=== PATIENT | female | born 1985 | race Caucasian/White ===

== ENCOUNTER 2024-03-19 11:14 | Emergency (ER) | payer OTHER, SELFPAY ==
[2024-03-19 11:28] VITALS: BP 108/79
--- NOTE | 2024-03-19 11:47 | ED.GENMED ---
History of Present Illness
<Cheyanne Gallegos PA-C - Last Filed: 03/19/24 13:02>
General
Chief Complaint: Anxiety
Source: patient
Exam Limitations: none
Time Seen by Provider: 03/19/24 11:34
Nursing documentation reviewed up to this point in time: agreed with
History of Present Illness
History of Present Illness:
38-year-old female past medical history of anxiety presents emergency department today with concerns of a panic attack. Patient reports that she has had panic attacks for many years and usually she will get them around once a month, but they have
slowed in frequency since she switched jobs recently. Patient reports that they usually happen at nighttime. Patient reports that they have never gotten to the point where she required emergency treatment. Patient reports that last night, she
started to feel anxious when she is trying to fall asleep and started to feel short of breath, bilateral upper extremity paresthesias, as well as tightness and locked hands. She also had nausea and vomiting associated with this. Patient states
that the symptoms are typical of her panic attacks with a never been this severe before. Patient states that she went to bed and woke up with the same symptoms and because of the severity, called EMS. En route to the emergency department, patient
was given droperidol. Patient states that at this point, all her symptoms have resolved. Patient currently denies chest pain or shortness of breath. Patient states that she just feels fatigued but otherwise all her symptoms have resolved.
Patient does not take any psychiatric medication, patient has never seen a psychiatrist before but she did use to do therapy.
Review of Systems
<Cheyanne Gallegos PA-C - Last Filed: 03/19/24 13:02>
Review of Systems
All Other Systems: ROS reviewed and negative except as documented in HPI and ROS
Phy Exam
<Cheynane Gallegos PA-C - Last Filed: 03/19/24 13:02>
Physical Exam
Physical Exam:
General: Patient is well appearing and in no acute distress; non-toxic
Skin: Warm and dry, no rashes or lesions
Head: Normocephalic, atraumatic
Eyes: Sclera non-icteric. EOMs intact. PERRLA.
Cardiac: Regular rate and rhythm, no murmurs.
Pulm: Normal respiratory effort
Neuro: CN II-XII intact, no focal neurologic deficits.
Psychiatric: Appropriate mood and affect. Good insight and judgment. No suicidal or homicidal ideations. No visual or auditory hallucinations.
Course
<Cheyanne Gallegos PA-C - Last Filed: 03/19/24 13:02>
Orders/Labs/Results
Orders:
Orders
03/19/24 12:10
Complete Blood Count/With Diff Urgent
Comprehensive Metabolic Panel Urgent
Abnormal Lab Results
03/19/24
12:10
WBC 11.2 H 10^3/uL
(4.8-10.8)
RBC 4.07 L 10^6/uL
(4.20-5.40)
Hct 35.3 L %
(37.0-47.0)
MPV 10.9 H fL
(7.4-10.4)
Absolute Neuts (auto) 9.6 H 10^3/uL
(1.4-6.5)
Absolute Lymphs (auto) 1.1 L 10^3/uL
(1.2-3.4)
Neutrophils % 85.8 H %
(42.2-75.2)
Lymphocytes % 9.6 L %
(20.5-51.1)
Glucose 102 H mg/dl
(70-99)
03/19/24 12:10
03/19/24 12:10
Vital Signs
Initial and Last Documented VS:
Initial Vital Signs
Temp Pulse Resp BP Pulse Ox
97.5 F 78 16 108/79 98
03/19/24 11:28 03/19/24 11:28 03/19/24 11:28 03/19/24 11:28 03/19/24 11:28
Last Documented Vital Signs
Temp Pulse Resp BP Pulse Ox
97.5 F 78 16 108/79 98
03/19/24 11:28 03/19/24 11:28 03/19/24 11:28 03/19/24 11:28 03/19/24 11:28
<Lucia Zamudio MD - Last Filed: 03/19/24 12:24>
Orders/Labs/Results
Orders:
Orders
03/19/24 12:10
Complete Blood Count/With Diff Urgent
Comprehensive Metabolic Panel Urgent
Abnormal Lab Results
03/19/24
12:10
WBC 11.2 H 10^3/uL
(4.8-10.8)
RBC 4.07 L 10^6/uL
(4.20-5.40)
Hct 35.3 L %
(37.0-47.0)
MPV 10.9 H fL
(7.4-10.4)
Absolute Neuts (auto) 9.6 H 10^3/uL
(1.4-6.5)
Absolute Lymphs (auto) 1.1 L 10^3/uL
(1.2-3.4)
Neutrophils % 85.8 H %
(42.2-75.2)
Lymphocytes % 9.6 L %
(20.5-51.1)
Glucose 102 H mg/dl
(70-99)
03/19/24 12:10
03/19/24 12:10
Vital Signs
Initial and Last Documented VS:
Initial Vital Signs
Temp Pulse Resp BP Pulse Ox
97.5 F 78 16 108/79 98
03/19/24 11:28 03/19/24 11:28 03/19/24 11:28 03/19/24 11:28 03/19/24 11:28
Last Documented Vital Signs
Temp Pulse Resp BP Pulse Ox
97.5 F 78 16 108/79 98
03/19/24 11:28 03/19/24 11:28 03/19/24 11:28 03/19/24 11:28 03/19/24 11:28
<Cheyanne Gallegos PA-C - Last Filed: 03/19/24 13:02>
MDM/Problems Addressed
Differential Diagnosis Includes:
Differentials include anxiety attack, panic disorder, generalized anxiety disorder, major depressive disorder with anxious features
MDM/Problems Addressed:
38-year-old female presents emergency department today following a panic attack. She does have a history of panic attacks and states that this feels like them however she has never gotten them to be this severe before. Patient called EMS and was
given droperidol and route. Patient states that this completely relieves her symptoms. She now feels fatigued but otherwise she is not anxious, she is no chest pain or shortness of breath. On exam she is well-appearing. She has no suicidal or
homicidal ideations. CBC and CMP unremarkable. Did offer crisis consult to offer resources, however patient declines this at this time, patient states that she would rather follow-up as now patient with her own health network. No medication was
given here in the emergency department. On reassessment, patient still feels well and did not have a return of her panic symptoms. Patient stable for discharge.
Chronic conditions affecting care:
panic attacks
<Cheyanne Gallegos PA-C - Last Filed: 03/19/24 13:02>
*Pulse Oximetry
Patient hypoxic: no
*Critical Care Note
Total Time (30-74mins, 75-104mins- exclusive of procedures): Not Applicable
Data Reviewed
Review of Other/Old Records Reveals: Records (No prior ER visit documentation to review) and Discharge Summary (No prior discharge summaries to review)
Source: patient (No prior lab work, imaging studies, or EKGs to review )
Prescriptions/Medications Considered But Not Given:
n/a
Further Testing Considered But Not Given:
n/a
<Cheyanne Gallegos PA-C - Last Filed: 03/19/24 13:02>
Patient Management
Escalation/DeEscalation of care consider admission/obs:
Admit not indicated, patient stable for discharge.
ED Attending Note
<Cheyanne Gallegos PA-C - Last Filed: 03/19/24 13:02>
-
Portions of this chart may have been created with voice recognition software.� Occasional wrong word or��sound alike� substitutions may have occurred due to the inherent limitations of voice recognition software.
<Lucia Zamudio MD - Last Filed: 03/19/24 12:24>
ED Attending Note
Patient seen and examined by attending physician: Yes
I performed the substantive portion of visit, reviewed & personally made and approve the management plan that is documented in note by myself or ARIANNE.: Yes
ED Attending Note:
Patient arrives extremely anxious and slightly tachypneic, however, after some time, patient calmer. She will alert and oriented x 3. She is in no acute respiratory distress.
Discharge Plan
Departure
Patient Disposition: Home (Routine Discharge)
Date of Disposition: 03/19/24
Time of Disposition: 12:51
Patient with high blood pressure during this ER visit?: No
Condition: Good
Discharge Problem:
Anxiety attack
Instructions: Anxiety, Adult (DC), Panic Disorder (DC)
Referrals:
UNKNOWN - PT DOES,NOT KNOW [Family Provider] -
Activity Restrictions/Additional Instructions:
Please return to the emergency department should you experience hallucinations, suicidal or homicidal ideations, chest pain, shortness of breath, palpitations, or any signs or symptoms concerning to you.
Please follow-up with your primary to establish care with a therapist or psychiatrist.
Interventions
Interventions:
*Risk Screen - Suicide Last Done: 03/19/24 11:28
*General Assessment Last Done: 03/19/24 11:28
*Neglect/Abuse Screening Last Done: 03/19/24 11:28
ED- Fall Risk Assessment Last Done: 03/19/24 11:35
*ED COVID-19 Vaccine History Last Done: 03/19/24 11:35
ED-Psychological Assessment Last Done: 03/19/24 11:35
Discharge Date and Time
Print Language: CHINESE
[2024-03-19 12:23] LABS: % Basophils 0.4 % (0-2); % Immature Granulocytes 0.2 % (0-0.5); % Lymphocytes 9.6 % (20.5-51.1); % Neutrophils 85.8 % (42.2-75.2); Absolute Lymphocytes 1.1 10^3/uL (1.2-3.4); Absolute Monocytes 0.5 10^3/uL (0.1-0.6); Absolute Neutrophils 9.6 10^3/uL (1.4-6.5); Hematocrit 35.3 % (37.0-47.0); Hemoglobin 12.2 g/dL (12.0-16.0); Mean Corp Hgb Conc. 34.6 g/dL (33.0-37.0); Mean Corpuscular Volume 86.7 fL (81.0-99.0); Mean Platelet Volume 10.9 fL (7.4-10.4); Nucleated Red Blood Cells % 0 %; Platelet Count 246 10^3/uL (130-400); Red Blood Cell Count 4.07 10^6/uL (4.20-5.40); Red Cell Dist. Width 13.2 % (11.5-14.5); White Blood Cell Count 11.2 10^3/uL (4.8-10.8)
[2024-03-19 12:38] LABS: ALT (SGPT) 13 U/L (0-35); AST (SGOT) 26 U/L (14-36); Albumin 4.3 g/dl (3.5-5.0); Alkaline Phosphatase 53 U/L (38-126); Blood Urea Nitrogen 9 mg/dl (7-17); Calcium 9.2 mg/dl (8.4-10.2); Carbon Dioxide 23 mmol/L (22-30); Chloride 104 mmol/L (98-107); Glucose 102 mg/dl (70-99); Potassium 3.6 mmol/L (3.5-5.1); Sodium 140 mmol/L (135-145); Total Bilirubin 0.7 mg/dl (0.2-1.3); Total Protein 6.7 g/dl (6.3-8.2); eGFR > 60.00
[2024-03-19 14:08] VITALS: BP 113/74
== END 2024-03-19 14:09 | disposition home or self-care (01) ==
LOC: EMR 11:14
PROVIDERS: Physician Assistant; EMERGENCY PHYSICIAN Emergency Medicine
DX: F41.0 Panic disorder [episodic paroxysmal anxiety] (principal)
CPT/HCPCS: 99283; 80053; 85025